=== PATIENT | female | born 1975 | race Caucasian/White ===

== ENCOUNTER 2018-06-24 07:57 | Emergency (ER) | payer OTHER ==
[~2018-06-24] VITALS: Ht 167.6 cm; Wt 86.2 kg
[~2018-06-24 07:57] MED LIST: KETO10TA2 PO; LEVAQUIN750 MG PO; ORPH100T PO; ULTRACET PO
[2018-06-24] MEDS ORDERED: KETO10TA2 PO (11:38)
[2018-06-24] MEDS ORDERED: BACTRIM DS TAB1 EACH PO (11:38)
== END 2018-06-24 11:44 | disposition home or self-care (01) ==
LOC: ER 07:57
DX: I88.0 Nonspecific mesenteric lymphadenitis (principal); R10.32 Left lower quadrant pain